=== PATIENT | female | born 1970 | race Caucasian/White ===

== ENCOUNTER → 2017-01-23 | Outpatient (CLI) | payer OTHER ==
--- NOTE | 2017-01-23 15:41 | US ---
EXAMINATION TYPE: US transvaginal DATE OF EXAM: 01/23/2017 COMPARISON: NONE CLINICAL HISTORY: N92.0 Menorrhagia. Pt states very heavy menses x 2-3 yrs TECHNIQUE: Transvaginal (TV) Date of LMP: 12/29/2016 EXAM MEASUREMENTS: Uterus: 12.0 x 5.6 x 6.3 cm Endometrial Stripe: 1.1 cm Right Ovary: 3.9 x 3.2 x 2.2 cm Left Ovary: 2.8 x 2.3 x 2.2 cm 1. Uterus: Anteverted Heterogeneous, multiple Nabothian cysts in cervix 2. Endometrium: Heterogeneous 3. Right Ovary: Echogenic lesion with dirty shadowing= 1.6 x 1.8 x 1.6 cm 4. Left Ovary: wnl 5. Bilateral Adnexa: wnl 6. Posterior cul-de-sac: wnl IMPRESSION: 1. There is an echogenic focus with posterior shadowing within right ovary. Consider dermoid within t he differential. Consider CT pelvis with intravenous and oral contrast for additional evaluation.
== END ==
LOC: RADUSWWP 14:51
PROVIDERS: ATTEND Family Medicine
DX: N92.0 Excessive and frequent menstruation with regular cycle (principal)
CPT/HCPCS: 76830

== ENCOUNTER → 2024-02-04 | Outpatient (CLI) | payer OTHER ==
--- NOTE | 2024-02-04 17:11 | US ---
EXAMINATION TYPE: US venous doppler duplex LE LT DATE OF EXAM: 02/04/2024 4:56 PM COMPARISON: NONE CLINICAL INDICATION: Female, 53 years old with history of M79.662 M79.89 JACKIE DOPPLER; Posterior calf pain x 1 week. No hx of DVT SIDE PERFORMED: Left TECHNIQUE: The lower extremity deep venous system is examined utilizing real time linear array sonog paula with graded compression, color doppler sonography, and spectral doppler. VESSELS IMAGED: Common Femoral Vein Deep Femoral Vein Greater Saphenous Vein * Femoral Vein Popliteal Vein Small Saphenous Vein * Proximal Calf Veins (* superficial vessels) Left Leg: No evidence for DVT. Muscle in area of pain appears enlarged and heterogeneous compared to the right side. IMPRESSION: 1. No diagnostic evidence of DVT. 2. Appears to be a muscular enlargement and heterogeneous echogenicity in the area of pain. Muscular injury or myositis in the differential diagnosis consider MRI. [facility], Workstation: JD, 02/04/2024 5:09 PM
== END | disposition home or self-care (01) ==
LOC: RADUSWWP 16:34
PROVIDERS: ATTEND Family Medicine
DX: M79.662 Pain in left lower leg (principal); M79.89 Other specified soft tissue disorders